=== PATIENT | female | born 1980 | race Caucasian/White ===

== ENCOUNTER 2021-04-14 19:39 | Emergency (ER) | payer BC, OTHER ==
[~2021-04-14] VITALS: Ht 165.1 cm; Wt 100.0 kg
[~2021-04-14 19:39] MED LIST: AMOX500C PO; CETI10TA74 PO; CIPR500T94 PO; GUAI-40 PO; IBUP200T44 PO; ONDA4TAB10 SL; PSEU120T9 PO
[2021-04-14 20:17] VITALS: BP 130/74
--- NOTE | 2021-04-14 21:16 | PHYS DOC ---
Past History Past Medical History: No Pertinent History (RAMONA MONTAÑO APRN) Past Surgical History: Hysterectomy, Tonsillectomy (RAMONA MONTAÑO APRN) Alcohol Use: None Drug Use: None (RAMONA MONTAÑO APRN) General Adult EDM: Chief Complaint: SORE THROAT HPI: HPI: Patient is a 40-year-old female presents with sore throat. Patient states that symptoms started a few days ago. Patient had same symptoms 3 weeks ago and was treated for a sinus infection. Patient denies nasal congestion, drainage, cough or fever. Patient states she been taking ibuprofen at home with no relief. (RAMONA MONTAÑO APRN) Review of Systems: Review of Systems: ROS At least 10 ROS systems have been reviewed and are negative except as documented in the HPI. General: Negative except as outlined in HPI above. Skin: Negative except as outlined in HPI above. HEENT: Negative except as outlined in HPI above. Neck: Negative except as outlined in HPI above. Respiratory: Negative except as outlined in HPI above.. Cardiovascular: Negative except as outlined in HPI above. Abdomen: Negative except as outlined in HPI above. : Negative except as outlined in HPI above. Back/MSK: Negative except as outlined in HPI above. Neuro: Negative except as outlined in HPI above. Psych: Negative except as outlined in HPI above. (RAMONA MONTAÑO APRN) Allergies: Allergies: Allergies Coded Allergies Type Severity Reaction Last Updated Verified No Known Allergies Allergy Unknown 02/26/14 No (RAMONA MONTAÑO APRN) Physical Exam: PE: Constitutional: Well developed, well nourished, no acute distress, non-toxic appearance. [] HENT: Normocephalic, atraumatic, bilateral external ears normal, oropharynx moist, no oral exudates, throat red and inflamed Eyes: PERRLA, EOMI, conjunctiva normal, no discharge. [] Neck: Normal range of motion, no tenderness, supple, no stridor. [] Cardiovascular:Heart rate regular rhythm, no murmur [] Lungs & Thorax: Bilateral breath sounds clear to auscultation [] Abdomen: Bowel sounds normal, soft, no tenderness, no masses, no pulsatile masses. [] Skin: Warm, dry, no erythema, no rash. [] Back: No tenderness, no CVA tenderness. [] Extremities: No tenderness, no cyanosis, no clubbing, ROM intact, no edema. [] Neurologic: Alert and oriented X 3, normal motor function, normal sensory function, no focal deficits noted. [] Psychologic: Affect normal, judgement normal, mood normal. [] (RAMONA MONTAÑO APRN) Current Patient Data: Labs: Laboratory Tests Test 04/14/21 20:06 Group A Streptococcus Rapid Negative (NEGATIVE) Vital Signs: Vital Signs Date Time Temp Pulse Resp B/P (MAP) Pulse Ox O2 Delivery O2 Flow Rate FiO2 04/14/21 20:17 97.7 86 16 130/74 (92) 99 (RAMONA MONTAÑO APRN) EKG: EKG: [] (RAMONA MONTAÑO APRN) Radiology/Procedures: Radiology/Procedures: [] (RAMONA MONTAÑO APRN) Heart Score: C/O Chest Pain: No Risk Factors: Risk Factors: DM, Current or recent (<one month) smoker, HTN, HLP, family history of CAD, obesity. Risk Scores: Score 0 - 3: 2.5% MACE over next 6 weeks - Discharge Home Score 4 - 6: 20.3% MACE over next 6 weeks - Admit for Clinical Observation Score 7 - 10: 72.7% MACE over next 6 weeks - Early Invasive Strategies (RAMONA MONTAÑO APRN) Course & Med Decision Making: Course & Med Decision Making Pertinent Labs and Imaging studies reviewed. (See chart for details) [] 32-year-old female presents with a sore throat that started a few days ago. Patient checked for strep which was negative. Throat was red and irritated. No oral exudates seen. Patient is able to maintain her own secretions. Patient is able to eat and drink. Patient also requesting a Covid test. Advised patient it would take a couple of days for results. Discussed using [id number] medications to help with symptoms. Warm salt water gargles. Throat lozenges. Patient reports she understands discharge instructions. Advised patient to follow-up with her PCP in the next 2 to 3 days if symptoms do not improve. (RAMONA MONTAÑO APRN) Dragon Disclaimer: Dragon Disclaimer: This electronic medical record was generated, in whole or in part, using a voice recognition dictation system. (RAMONA MONTAÑO APRN) Departure Departure: Impression: Primary Impression: Sore throat (viral) Disposition: HOME / SELF CARE / HOMELESS Condition: STABLE Referrals: TERRY MURILLO (PCP) Patient Instructions: Sore Throat, [id number] Additional Instructions: You were seen for sore throat. Your strep test was negative. You can take Motrin and Tylenol for discomfort. Warm salt water gargles. Throat lozenges EMERGENCY DEPARTMENT GENERAL DISCHARGE INSTRUCTIONS Thank you for coming to [facility] (ED) today and trusting us with you care. We trust that you had a positivie experience in our Emergency Department. If you wish to speak to the department management, you may call the director at [phone]. YOUR FOLLOW UP INSTRUCTIONS ARE FOLLOWS: 1. Do you have a private Doctor? If you do not have a private doctor, please ask for a resource list of physicians or clinics that may be able to assist you with follow up care. 2. The Emergency Physician has interpreted your x-rays. The X-Ray specialist will also review them. If there is a change in the findings, you will be notified in 48 hours when at all possible. 3. A lab test or culture has been done, your results will be reviewed and you will be notified if you need a change in treatment. ADDITIONAL INSTRUCTIONS AND INFORMATION: 1. Your care today has been supervised by a physician who is specially trained in emergency care. Many problems require more than one evaluation for a complete diagnosis a nd treatment. We recommend that you schedule your follow up appointment as recommended to ensure complete treatment of you illness or injury. If you are unable to obtain follow up care and continue to have a problem, or if your condition worsens, we recommend that you return to the ED. 2. We are not able to safely determine your condition over the phone nor are we able to give sound medical advice over the phone. For these safety reasons, if you call for medical advice we will ask you to come to the ED for further evaluation. 3. If you have any questions regarding these discharge instructions please call the ED at [phone]. SAFETY INFORMATION: In the interest of safety, wellness, and injury prevention; we encourage you to wear your sealbelt, if you smoke; quite smoking, and we encourage family to use a protective helmet for bicycling and other sporting events that present an increased risk for head injury. IF YOUR SYMPTOMS WORSEN OR NEW SYMPTOMS DEVELOP, OR YOU HAVE CONCERNS ABOUT YOUR CONDITION; OR IF YOUR CONDITION WORSENS WHILE YOU ARE WAITING FOR YOUR FOLLOW UP APPOINTMENT; EITHER CONTACT YOUR PRIMARY CARE DOCTOR, THE PHYSICIAN WHOSE NAME AND NUMBER YOU WERE GIVEN, OR RETURN TO THE ED IMMEDIATELY. Attending Signature Attending Signature I have participated in the care of this patient and I have reviewed and agree with all pertinent clinical information above including history, exam, and recommendations. (MARIBETH JEROME MD) RAMONA MONTAÑO APRN Apr 14, 2021 21:16 MARIBETH JEROME MD Apr 18, 2021 17:44
== END 2021-04-14 21:34 | disposition home or self-care (01) ==
LOC: ER 19:39
DX: J02.8 Acute pharyngitis due to other specified organisms (principal); Z20.822 Contact with and (suspected) exposure to COVID-19
CPT/HCPCS: 87070; 87880; 99283; C9803; U0003